=== PATIENT | female | born 2000 | race Caucasian/White ===

== ENCOUNTER 2024-03-11 20:04 | Emergency (ER) | payer BC, OTHER ==
[~2024-03-11] VITALS: Ht 182.9 cm; Wt 104.5 kg
[2024-03-11] MEDS ORDERED: IBUP80TA PO (23:01)
[2024-03-11 23:10] VITALS: BP 140/64; TEMP 97.4; O2SAT 100
[2024-03-11] MEDS: IBUPROFEN 800 MG TAB PO ONE (23:20)
== END 2024-03-11 23:25 | disposition home or self-care (01) ==
LOC: M ED 20:04
DX: S93.402A Sprain of unspecified ligament of left ankle, initial encounter (principal); X50.0XXA Overexertion from strenuous movement or load, initial encounter; Y92.9 Unspecified place or not applicable; Y93.68 Activity, volleyball (beach) (court); Y99.9 Unspecified external cause status; Z79.1 Long term (current) use of non-steroidal anti-inflammatories (NSAID)

== ENCOUNTER 2025-01-13 11:25 | Emergency (ER) | payer BC, OTHER ==
[~2025-01-13] VITALS: Ht 182.9 cm; Wt 117.4 kg
[~2025-01-13 11:25] MED LIST: IBUP80TA PO
[2025-01-13 12:49] LABS: BASO % 0.2 % (0.0-1.0); HEMATOCRIT 49.4 % (36.0-47.0); HEMOGLOBIN 17.3 g/dl (12.0-15.5); LYMPH # 0.2 10^3/uL (1.5-5.0); LYMPH % 1.9 % (24.0-44.0); MEAN CORPUSCULAR HEMOGLOBIN 30.8 pg (27.0-33.0); MEAN CORPUSCULAR VOLUME 88.1 fl (80.0-96.0); MONO # 0.2 10^3/uL (0.0-0.8); NEUTROPHILS # 10.2 10^3/uL (1.5-8.5); NEUTROPHILS % 95.3 % (36.0-66.0); PLATELET COUNT, AUTOMATED 242 10^3/uL (150-450); RED BLOOD COUNT 5.61 10^6/uL (4.00-5.40); WHITE BLOOD COUNT 10.7 10^3/uL (4.0-10.0)
[2025-01-13 13:08] LABS: BLOOD UREA NITROGEN 15 MG/DL (9-23); CALCIUM LEVEL 9.7 MG/DL (8.5-10.1); CARBON DIOXIDE LEVEL 19 MMOL/L (20-31); CHLORIDE LEVEL 106 MMOL/L (98-107); GLOMERULAR FILTRATION RATE > 60.0 (>60); GLUCOSE, FASTING 120 MG/DL (60-100); POTASSIUM SERUM 4.6 MMOL/L (3.5-5.1); SODIUM LEVEL 137 MMOL/L (136-145)
[2025-01-13 13:46] LABS: HCG, SERUM QUANTITATIVE 119809.7 MIU/ML (<4.2)
[2025-01-13 15:00] VITALS: BP 122/73; TEMP 97.5; O2SAT 100
[2025-01-13] MEDS: NS (Normal Saline) 0.9% 1,000 ML IV SCH (15:53)
[2025-01-13] MEDS: ONDANSETRON 4MG 2ML VIAL IV ONE (15:53)
[2025-01-13] MEDS: ACETAMINOPHEN 325 MG TAB PO ONE (15:53)
[2025-01-13 16:14] LABS: KETONE, URINE AUTO RFX NEGATIVE (NEGATIVE); LEUKOCYTE ESTERASE UR AUTO RFX NEGATIVE (NEGATIVE); MUCUS, URINE RFX MODERATE (NEGATIVE); NITRITE, URINE AUTO RFX NEGATIVE (NEGATIVE); RBC, URINE AUTO RFX 1 /HPF (0-3); SQUAM EPITHELIAL CELL UR AURFX 3 /HPF (0-6); WBC, URINE AUTO RFX 0 /HPF (0-3)
[2025-01-13] MEDS ORDERED: ONDA-282 PO (17:22)
== END 2025-01-13 17:49 | disposition home or self-care (01) ==
LOC: M ED 11:25
DX: O98.511 Other viral diseases complicating pregnancy, first trimester (principal); O99.511 Diseases of the respiratory system complicating pregnancy, first trimester; Z3A.11 11 weeks gestation of pregnancy; Z88.7 Allergy status to serum and vaccine; Z91.030 Bee allergy status
CPT/HCPCS: 76801; 80048; 81001; 84702; 85025; 87486; 87581; 87633; 87798; 96361; 96374; 99284; J2405